=== PATIENT | female | born 1995 | race Caucasian/White ===

== ENCOUNTER 2022-10-28 07:49 | Inpatient (IN) | payer OTHER ==
[~2022-10-28] VITALS: Ht 160 cm; Wt 105.2 kg
[2022-10-28] MEDS ORDERED: CARBOPROST TROMETHAMINE 250 MCG/ML AMPUL IM PRN (08:30)
[2022-10-28] MEDS ORDERED: LIDOCAINE HCL 1% 20ML VIAL (Pyxis) INJ INFIL SCH (08:30)
[2022-10-28] MEDS ORDERED: OXYTOCIN 30 UNITS/500ML NS PMX 500 ML IV SCH (08:30)
[2022-10-28] MEDS ORDERED: MISOPROSTOL 100MCG TABLET VG SCH (08:30)
[2022-10-28] MEDS ORDERED: NALOXONE HCL 0.4 MG/ML 1ML VIAL IM PRN (08:30)
[2022-10-28] MEDS ORDERED: METHYLERGONOVINE MALEATE 0.2 MG/ML IM PRN (08:30)
[2022-10-28 12:01] LABS: CLARITY URINE CLOUDY (CLEAR); COLOR URINE YELLOW (YELLOW); KETONES URINE NEGATIVE (NEGATIVE); LEUKOCYTE ESTERASE URINE 2+ (NEGATIVE); NITRITE URINE NEGATIVE (NEGATIVE); OCCULT BLOOD URINE 2+ (NEGATIVE); PROTEIN URINE 1+ (NEGATIVE); SPECIFIC GRAVITY URINE 1.021 (1.005-1.030); UROBILINOGEN URINE 0.2 E.U./dL (0.2-1.0)
[2022-10-28 12:35] LABS: *AMPHETAMINES SCREEN URINE NEGATIVE (NEGATIVE); *BARBITURATES SCREEN URINE NEGATIVE (NEGATIVE); *BENZODIAZEPINES SCREEN URINE NEGATIVE (NEGATIVE); *COCAINE SCREEN URINE NEGATIVE (NEGATIVE); CANNABINOID URINE SCREEN NEGATIVE (NEGATIVE); METHADONE URINE SCREEN NEGATIVE (NEGATIVE); OPIATES URINE SCREEN NEGATIVE (NEGATIVE); PHENCYCLIDINE URINE SCREEN NEGATIVE (NEGATIVE)
[2022-10-28 12:53] LABS: HEPATITIS B SURFACE ANTIGEN NEGATIVE
[2022-10-28 14:31] LABS: BASOPHILS % 0.6 % (0.0-2.0); EOSINOPHILS % 1.5 % (0.0-5.0); HEMATOCRIT. 36.4 % (36.0-48.0); HEMOGLOBIN. 12.2 g/dL (12.0-16.0); LYMPHOCYTES % 19.8 % (20.0-50.0); MEAN CORPUSCULAR HEMOGLOBIN 29.3 pg (28.0-32.0); MEAN CORPUSCULAR VOLUME 87.8 fL (81.0-99.0); MEAN PLATELET VOLUME 9.6 fl (7.4-10.4); MONOCYTES % 4.5 % (2.0-8.0); NEUTROPHILS % 73.6 % (40.0-76.0); PLATELET 202 x1000/uL (130-400); RED BLOOD CELL COUNT 4.15 mill/uL (4.2-5.4); RED CELL DISTRIBUTION WIDTH 14.6 % (11.6-14.6)
[2022-10-28] MEDS: LACTATED RINGERS 1,000 ML IV SCH ×2 (19:54→22:12)
[2022-10-28] MEDS ORDERED: ROPIVACAINE HCL/PF EPIDURAL 200 ML EPI SCH (21:30)
[2022-10-28] MEDS ORDERED: ROPIVACAINE HCL/PF EPIDURAL 200 ML EPI ONE (21:36)
[2022-10-29] MEDS: LACTATED RINGERS 1,000 ML IV SCH ×2 (01:10→08:55)
[2022-10-29] MEDS ORDERED: FENTANYL CITRATE/PF 50MCG/ML 2ML VIAL ONE ×3 (06:39→11:42)
[2022-10-29] MEDS ORDERED: MISOPROSTOL 200MCG TABLET VG SCH (07:45)
[2022-10-29 18:47] VITALS: BP 119/74; PULSE 83; RESP 18; TEMP 99.3
[2022-10-29 19:30] VITALS: BP 114/62; PULSE 100; RESP 20; TEMP 99.7; O2SAT 97
[2022-10-29] MEDS ORDERED: BISACODYL 10MG SUPP PR PRN (22:30)
[2022-10-29] MEDS ORDERED: IBUPROFEN 400MG TABLET PO PRN (22:30)
[2022-10-29] MEDS ORDERED: LANOLIN OINT 7GM TUBE TOP PRN (22:30)
[2022-10-30 04:00] VITALS: BP 109/64; PULSE 73; RESP 18; TEMP 98.1
[2022-10-30] MEDS: IBUPROFEN 800MG TABLET PO PRN ×2 (05:51→21:02)
[2022-10-30 06:19] LABS: HEMATOCRIT 31.8 % (36.0-48.0); HEMOGLOBIN 10.7 g/dL (12.0-16.0); MEAN CORPUSCULAR HEMOGLOBIN 29.5 pg (28.0-32.0); MEAN CORPUSCULAR VOLUME 87.6 fL (81.0-99.0); PLATELET 172 x1000/uL (130-400); RED BLOOD CELL COUNT 3.62 mill/uL (4.2-5.4); RED CELL DISTRIBUTION WIDTH 14.2 % (11.6-14.6)
[2022-10-30 08:00] VITALS: BP 114/65; PULSE 82; RESP 18; TEMP 98.2; O2SAT 96
[2022-10-30] MEDS: PRENATAL VIT/FE FUMARATE/FA TABLET PO SCH (09:00)
[2022-10-30] MEDS: FERROUS SULFATE 325MG TABLET PO SCH (12:30)
[2022-10-30 16:00] VITALS: BP 137/77; PULSE 72; RESP 18; TEMP 98.9
[2022-10-30] MEDS: MAGNESIUM/ALUMINUM HYDROXIDE/SIMETHICONE 30ML UDC PO SCH ×3 (17:30→21:01)
[2022-10-30 20:00] VITALS: BP 128/77; PULSE 89; RESP 18; TEMP 98.1; O2SAT 98
[2022-10-30] MEDS: DOCUSATE SODIUM 100MG CAPSULE PO SCH (21:01)
[2022-10-30] MEDS: SIMETHICONE 80MG TABLET CHEW PO SCH (21:01)
[2022-10-31 04:00] VITALS: BP 114/71; PULSE 69; RESP 18; TEMP 98.1
[2022-10-31] MEDS: IBUPROFEN 800MG TABLET PO PRN ×3 (04:36→20:31)
[2022-10-31] MEDS: MAGNESIUM/ALUMINUM HYDROXIDE/SIMETHICONE 30ML UDC PO SCH ×2 (07:30→08:57)
[2022-10-31 08:30] VITALS: O2SAT 98
[2022-10-31] MEDS: SIMETHICONE 80MG TABLET CHEW PO SCH ×3 (08:58→20:30)
[2022-10-31] MEDS: FERROUS SULFATE 325MG TABLET PO SCH ×2 (08:58→17:46)
[2022-10-31] MEDS: PRENATAL VIT/FE FUMARATE/FA TABLET PO SCH (09:00)
[2022-10-31 10:00] VITALS: BP 114/66; PULSE 72; RESP 18; TEMP 98.2
[2022-10-31 17:22] VITALS: BP 123/80; PULSE 77; RESP 20; TEMP 98.6
[2022-10-31 20:00] VITALS: BP 135/82; PULSE 78; RESP 18; TEMP 98.6
[2022-10-31 20:31] VITALS: O2SAT 98
[2022-10-31] MEDS: DOCUSATE SODIUM 100MG CAPSULE PO SCH (20:31)
[2022-11-01 04:00] VITALS: BP 128/60; PULSE 82; RESP 18; TEMP 98.4
[2022-11-01] MEDS: PRENATAL VIT/FE FUMARATE/FA TABLET PO SCH (08:20)
[2022-11-01] MEDS: IBUPROFEN 800MG TABLET PO PRN (08:20)
[2022-11-01] MEDS: SIMETHICONE 80MG TABLET CHEW PO SCH (08:21)
[2022-11-01] MEDS: FERROUS SULFATE 325MG TABLET PO SCH (08:21)
[2022-11-01 08:30] VITALS: BP 124/74; PULSE 80; RESP 18; TEMP 98.6
[2022-11-01 09:30] VITALS: O2SAT 98
== END 2022-11-01 12:30 | disposition home or self-care (01) | DRG 560 ==
LOC: OBSVTOIN 07:49 → 8 EST LDRP 07:49 → 8EST 10-29 18:23
PROVIDERS: ADMIT Obstetrics & Gynecology; ATTEND Obstetrics & Gynecology
PROC: 10E0XZZ Delivery of Products of Conception, External Approach (ICD-10-PCS; principal; 2022-10-28)
PROC: 3E0R3BZ Introduction of Anesthetic Agent into Spinal Canal, Percutaneous Approach (ICD-10-PCS; 2022-10-28)
PROC: 00HU33Z Insertion of Infusion Device into Spinal Canal, Percutaneous Approach (ICD-10-PCS; 2022-10-28)
DX: O36.63X0 Maternal care for excessive fetal growth, third trimester, not applicable or unspecified (principal); Z37.0 Single live birth; O75.3 Other infection during labor; Z3A.39 39 weeks gestation of pregnancy
CPT/HCPCS: 36415; 76805; 76818; 80305; 81003; 85025; 85027; 86592; 86703; 86762; 86850; 86900; 87340; G0378; J2795; J3010; J7120; A4315; J2590